=== PATIENT | female | born 1975 | race Caucasian/White ===

== ENCOUNTER 2024-11-11 07:58 | Emergency (ER) | payer BC ==
[~2024-11-11] VITALS: Ht 152.4 cm; Wt 80.0 kg
[2024-11-11 08:08] VITALS: O2SAT 100
[2024-11-11] MEDS: KETOROLAC 30MG/ML VIAL IM ONE (09:35)
[2024-11-11] MEDS ORDERED: IBUP-2029 MT (10:10)
[2024-11-11 11:11] VITALS: BP 190/95; PULSE 100; RESP 24; TEMP 36.9; O2SAT 98
== END 2024-11-11 11:12 | disposition home or self-care (01) ==
LOC: ER 07:58
DX: M25.561 Pain in right knee (principal); M25.571 Pain in right ankle and joints of right foot; E78.00 Pure hypercholesterolemia, unspecified; I10 Essential (primary) hypertension; V49.9XXA Car occupant (driver) (passenger) injured in unspecified traffic accident, initial encounter; Y93.89 Activity, other specified; Y92.410 Unspecified street and highway as the place of occurrence of the external cause; Y99.8 Other external cause status
CPT/HCPCS: 99284; 71045; 73560; 73590; 73600; 73620; 96372; J1885